=== PATIENT | male | born 1990 | race Caucasian/White ===

== ENCOUNTER 2017-01-12 12:57 | Emergency (ER) | payer OTHER ==
[2017-01-12 12:58] VITALS: BMI 32.9
[2017-01-12 13:12] VITALS: BP 134/76; PULSE 86; RESP 16; TEMP 98.2; O2SAT 96
[2017-01-12] MEDS ORDERED: Tobramycin 0.3% OPHT SOLN OS STA (13:13)
--- NOTE | 2017-01-12 13:17 | ED PDOC ---
Arrival/HPI - General Historian: Patient - General Chief Complaint: Eye Problem Time Seen by Provider: 01/12/17 13:13 - History of Present Illness Narrative History of Present Illness (Text): 01/12/17 13:14 26yo male with no PMHx present with right eye redness and discharge since this morning. Denies visual acuity changes, tearing, pain, any other complaint. (Ana Solano) Past Medical History - Provider Review Nursing Documentation Reviewed: Yes - Infectious Disease Hx of Infectious Diseases: None - Past Medical History Past Medical History: No Previous - Psychiatric Hx Substance Use: No - Past Surgical History Past Surgical History: Non-Contributing Family/Social History - Physician Review Nursing Documentation Reviewed: Yes Family/Social History: Unknown Family HX Smoking Status: Never Smoked Hx Alcohol Use: No Hx Substance Use: No Allergies/Home Meds Allergies/Adverse Reactions: Allergies No Known Allergies Allergy (Verified 01/12/17 13:12) Home Medications: Home Meds Medication Instructions Recorded Confirmed No Known Home Med 01/12/17 01/12/17 Review of Systems - Physician Review All systems were reviewed & negative as marked: Yes - Review of Systems Constitutional: Normal Eyes: Other (Right eye redness and discharge) ENT: Normal Respiratory: Normal Cardiovascular: Normal Gastrointestinal: Normal Genitourinary Male: Normal Musculoskeletal: Normal Skin: Normal Neurological: Normal Endocrine: Normal Hemo/Lymphatic: Normal Psychiatric: Normal Physical Exam Vital Signs Reviewed: Yes Temperature: Afebrile Blood Pressure: Normal Pulse: Regular Respiratory Rate: Normal Appearance: Positive for: Well-Appearing, Non-Toxic, Comfortable Pain Distress: None Mental Status: Positive for: Alert and Oriented X 3 - Systems Exam Head: Present: Atraumatic, Normocephalic Pupils: Present: PERRL Extroacular Muscles: Present: EOMI Conjunctiva: Present: Injected, Icteric (Red right conjunctiva) Mouth: Present: Moist Mucous Membranes Neck: Present: Normal Range of Motion Respiratory/Chest: Present: Clear to Auscultation, Good Air Exchange. No: Respiratory Distress, Accessory Muscle Use Cardiovascular: Present: Regular Rate and Rhythm, Normal S1, S2. No: Murmurs Abdomen: Present: Normal Bowel Sounds. No: Tenderness, Distention, Peritoneal Signs Back: Present: Normal Inspection Upper Extremity: Present: Normal Inspection. No: Cyanosis, Edema Lower Extremity: Present: Normal Inspection. No: Edema Neurological: Present: GCS=15, CN II-XII Intact, Speech Normal Skin: Present: Warm, Dry, Normal Color. No: Rashes Psychiatric: Present: Alert, Oriented x 3, Normal Insight, Normal Concentration Medical Decision Making ED Course and Treatment: I was available for consultation during PA evaluation. The chart was reviewed by me, and I agree with disposition. The documented history was done by the physician stage driver. The documented physical exam was done by the physician stage driver. The documented procedures were done by the physician stage driver. ( Bigg Sharma) - Medication Orders Current Medication Orders: Discontinued Medications Tobramycin Sulfate (Tobrex 0.3% Ophth Soln) 2 drop OS STAT STA Stop: 01/12/17 13:14 Last Admin: 01/12/17 13:30 Dose: 2 drop Disposition/Present on Arrival - Present on Arrival Any Indicators Present on Arrival: No History of DVT/PE: No History of Uncontrolled Diabetes: No Urinary Catheter: No History of Decub. Ulcer: No History Surgical Site Infection Following: None - Disposition Have Diagnosis and Disposition been Completed?: Yes Disposition Time: 13:20 Patient Plan: Discharge - Disposition Diagnosis: Conjunctivitis Disposition: HOME/ ROUTINE Condition: STABLE Discharge Instructions (ExitCare): Conjunctivitis (ED) Additional Instructions: Follow up with your Doctor Wash hands constantly Return to ED for any new or worsening symptoms Referrals: [facility] [place] [Outside] - Follow up with primary Forms: WORK NOTE
== END 2017-01-12 13:45 | disposition home or self-care (01) ==
LOC: ED 12:57
DX: H10.9 Unspecified conjunctivitis (principal)